=== PATIENT | male | born 1930 | race Caucasian/White ===

== ENCOUNTER 2017-03-31 09:01 | Observation (INO) | payer MEDICARE, OTHER ==
[~2017-03-31] VITALS: Ht 177.8 cm; Wt 80.3 kg
--- NOTE | 2017-03-31 09:01 | NUR ---
ARRIVAL PT ARRIVED VIA EMS, AWAKE, ALERT, ORIENTED TO SELF ONLY. PT WAS FOUND IN HIS CAR DRINKING COFFEE BY PD, PT CONFUSED, NOT SURE WHAT TIME OF DAY IT IS OR WHY HE IS IN [place]. EMS BROUGHT PT IN FOR ALTERED MENTAL STATUS. PT TEMP 94.4 ORAL, PLACED WARM BLANKETS ON PT WITH BEAR HUGGER UNDER BLANKET, GOT PT COFFEE AND BREAKFAST TRAY, SITTING UP EATING BREAKFAST.
--- NOTE | 2017-03-31 09:07 | NUR ---
DAUGHTER PT HAD A CARD IN HIS [place] WITH HIS DAUGHTERS NUMBER, CALLED NUMBER AND SPOKE WITH BRAYDEN PT DAUGHTER, SHE BECAME VERY UPSET AND TEARFUL, STATED SHE HAS BEEN TRYING TO CALL HIM BUT HAS NOT SPOKE TO HIM SINCE LAST WEDNESDAY. 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 SHE STATED SHE WOULD START MAKING ARRANGEMENTS TO GET HERE TO HIM. GAVE DAUGHTER MY NUMBER TO CALL ME BACK WHEN SHE GETS A PLAN.
--- NOTE | 2017-03-31 09:17 | NUR ---
HAYLEY CALLED HAYLEY CHEF BROILER OR FRY TO INFORM HER OF SITUATION AND GAVE HER DAUGHTERS NUMBER.
--- NOTE | 2017-03-31 09:18 | PCM.EKG ---
[facility] Test Date: 2017-03-31 Test Time: 09:16:50 Pat Name: THEODORA MARTINEZ Department: Room: 306 Gender: M Air/Ocean Export Clerk: ASIYA : 1930 Requested By: RENETTA GOLDSMITH Order Number: [id number] Reading MD: Kenneth Avery Measurements Intervals [place] Rate: 78 P: 60 IN: 150 QRS: -33 QRSD: 114 T: 78 QT: 390 QTc: 444 Interpretive Statements Sinus rhythm with premature supraventricular complexes and fusion complexes Left axis deviation Inferior infarct, age undetermined Abnormal ECG No previous ECG available for comparison Electronically Signed On 04-04-2017 14:35:44 STRAIGHTENING MACHINE FEEDER by Kenneth Avery Please click the below link to view image of tracing.
[2017-03-31 09:25] LABS: BASOPHIL # 0.1 10^3/uL (0.0-0.1); BASOPHIL % 0.9 % (0.0-0.2); EOSINOPHIL # 0.2 10^3/uL (0.0-0.2); EOSINOPHIL % 1.5 % (0.0-5.0); HEMOGLOBIN 15.1 g/dL (13.9-16.3); LYMPHOCYTES # 1.1 10^3/uL (1.0-4.8); LYMPHOCYTES % 10.9 % (24.0-44.0); MEAN CELL HGB 32.8 pg (26-34); MEAN CELL HGB CONCENTRATION 33.7 g/dL (33-37); MEAN CORP VOLUME 97.2 fL (78-100); MEAN PLATELET VOLUME 10.2 fL (7.8-11.0); MONOCYTES # 0.8 10^3/uL (0.3-0.8); MONOCYTES % 8.2 % (5.0-12.0); NEUTROPHIL # 7.8 10^3/uL (1.8-7.7); NEUTROPHILS % 78.3 % (41.0-85.0); RED CELL DISTRIBUTION WIDTH 13.4 % (11.5-14.5)
--- NOTE | 2017-03-31 09:38 | ER.PDOC ---
General Chief Complaint: Altered Mental Status Stated Complaint: ALOC Time seen by MD: 09:10 Source: patient Exam Limitations: clinical condition History of Present Illness Initial Comments pt found by police to have been in car overnight and is confused as to what he is doing there. pleasent affect, cooperative, no motor or sensory deficits, Temp upon admission 94.4 F Usually: alert but confused Decreased Ability to Stand: weak Prior symptoms/Treatment: No Similar symptoms previous, No Recenly Seen, No Treated by Doctor, No Recently Hospitalized Allergies: Coded Allergies: No Known Allergies (Unverified , 03/31/17) Vital Signs Temp 94.4F Past Medical History Medical History: cardiac problems, hypertension, other (daughter states he is developing dementia) Social History Smoking: non-smoker Alcohol Use: none Drug Use: none Review of Systems Constitutional: weakness Eyes: no symptoms reported Ears, Nose, Mouth, Throat: no symptoms reported Respiratory: no symptoms reported Cardiovascular: no symptoms reported Gastrointestinal: no symptoms reported Genitourinary: no symptoms reported Musculoskeletal: no symptoms reported Skin: no symptoms reported Psychiatric/Neurological: see HPI, cognitive dysfunction, weakness (pt is pleasant and answers appropriately; however can't remember when ate last, doesn' t remember whether he had supper last nite; unable to explain how and hwy he is here in [place], allegedly was seeking a neice; but daughter contacted in [place] states that there is no such neice) Endocrine: no symptoms reported Hematologic/Lymphatic: no symptoms reported All Other Systems: Reviewed and Negative Physical Exam General Appearance: alert HEENT: no apparent trauma, EOM's intact, no nystagmus, PERRL, ENT inspection nml, pharynx nml, airway intact, oral exam nml Neuro/Psych: other (confused and doesn't remeber why he is in [place]) Cranial Nerves: nml as tested Cerebellar: nml as tested Peripheral Exam: motor nml, sensation nml, reflexes nml Neck: supple, non-tender, no carotid bruit Respiratory: no resp distress, breath sounds nml CVS: reg rate & rhythm, heart sounds nml Abdomen: non-tender, no organomegaly, no distention Skin: color nml, no rash, warm/dry Extremities: non-tender, nml ROM, no pedal edema Results/Orders Results/Orders Laboratory Tests Test 03/31/17 09:21 03/31/17 10:37 03/31/17 11:49 White Blood Count 10.0 10^3/uL (4.5-11.0) Red Blood Count 4.61 10^6/uL (4.50-5.90) Hemoglobin 15.1 g/dL (13.9-16.3) Hematocrit 44.8 % (37.0-53.0) Mean Corpuscular Volume 97.2 fL (78-100) Mean Corpuscular Hemoglobin 32.8 pg (26-34) Mean Corpuscular Hemoglobin Concent 33.7 g/dL (33-37) Red Cell Distribution Width 13.4 % (11.5-14.5) Platelet Count 228 10^3/uL (150-400) Mean Platelet Volume 10.2 fL (7.8-11.0) Neutrophils (%) (Auto) 78.3 % (41.0-85.0) Lymphocytes (%) (Auto) 10.9 % (24.0-44.0) Monocytes (%) (Auto) 8.2 % (5.0-12.0) Neutrophils # (Auto) 7.8 10^3/uL (1.8-7.7) Lymphocytes # (Auto) 1.1 10^3/uL (1.0-4.8) Monocytes # (Auto) 0.8 10^3/uL (0.3-0.8) Absolute Immature Granulocyte (auto 0.02 10^3 u/L (0-2) Eosinophils % 1.5 % (0.0-5.0) Basophils % 0.9 % (0.0-0.2) Basophils # 0.1 10^3/uL (0.0-0.1) Eosinophil Count 0.2 10^3/uL (0.0-0.2) Prothrombin Time 11.6 SEC (9.8-11.9) Prothrombin Time INR (Non-Therap) 1.1 Activated Partial Thromboplast Time 26.7 SEC (24.67-30.72) Sodium Level 138 mmol/L (132-145) Potassium Level 5.1 mmol/L (3.6-5.2) Chloride Level 104.0 mmol/L (96-109) Carbon Dioxide Level 26.6 mmol/L (20.0-32) Anion Gap 12.5 Blood Urea Nitrogen 17 mg/dL (7-18) Creatinine 1.25 mg/dL (0.59-1.40) Estimated GFR () 66.6 (>/=60) BUN/Creatinine Ratio 13.0 Glucose Level 100 mg/dL (70-110) Calcium Level 9.5 mg/dL (8.4-10.5) Total Bilirubin 1.0 mg/dL (0.2-1.0) Aspartate Amino Transf (AST/SGOT) 17 U/L (0-35) Alanine Aminotransferase (ALT/SGPT) 15 U/L (12-78) Alkaline Phosphatase 68 U/L (50-136) Troponin I 0.45 ng/mL (0.00-0.05) 0.46 ng/mL (0.00-0.05) Total Protein 7.8 g/dL (6.4-8.2) Albumin 3.9 g/dL (3.4-5.0) Globulin 3.9 Percent Immature Gran (Cell Imm) 0.20 % (0.00-0.50) Urine Collection Type VOID Urine Color YELLOW (YELLOW) Urine Appearance CLEAR (CLEAR) Urine Bilirubin NEGATIVE MG/DL (NEGATIVE) Urine Ketones NEGATIVE (NEGATIVE) Urine Specific [place] 1.020 (1.005-1.035) Urine pH 5 (5.0-6.0) Urine Protein 15 mg/dL (NEGATIVE) Urine Urobilinogen NORMAL (NEGATIVE) Urine Nitrate NEGATIVE (NEGATAIVE) Urine Leukocyte Esterase 100/ul 1+ (NEGATIVE) Urine Blood NEGATIVE (NEGATIVE) Urine RBC NONE SEEN RBC/HPF (NONE Urine WBC 5-10 WBC/HPF (0-2) Urine Squamous Epithelial Cells FEW #/HPF (FEW) Urine Bacteria FEW (NONE SEEN) Urine Hyaline Casts 0-1 (NONE SEEN) Urine Glucose NORMAL (NEGATIVE) Progress Progress discussed with Dr Rosales, will admit for serial cardiac enzymes. await daughters arrival Departure Time of Disposition: 12:30 Disposition: 09 ADMITTED INPATIENT Impression: Primary Impression: Altered mental status, unspecified Additional Impressions: Elevated troponin Urinary tract infection Condition: Stable Problem Qualifiers Primary Impression: Altered mental status, unspecified Altered mental status type: disorientation Qualified Codes: R41.0 - Disorientation, unspecified Additional Impressions: Urinary tract infection Urinary tract infection type: site unspecified Hematuria presence: without hematuria Qualified Codes: N39.0 - Urinary tract infection, site not specified RENETTA GOLDSMITH MD Mar 31, 2017 09:38
--- NOTE | 2017-03-31 09:42 | NUR ---
CT PT TAKEN TO CT
[2017-03-31 09:47] LABS: CALCIUM 9.5 mg/dL (8.4-10.5); CARBON DIOXIDE 26.6 mmol/L (20.0-32)
--- NOTE | 2017-03-31 09:55 | NUR ---
PD PD CALLED WITH NUMBER OF A FRIEND THAT THEY FOUND OF PT, CALLED AND GAVE NAME AND NUMBER TO HAYLEY SPRAYER LEATHER
--- NOTE | 2017-03-31 10:04 | DIREP ---
PROCEDURE:CHEST 1 VIEW COMPARISON:None. INDICATIONS:altered mental status FINDINGS: LUNGS/PLEURA:Minimal left basilar atelectasis. No definite consolidation. No pleural effusions. VASCULATURE:Normal. Unremarkable pulmonary vasculature. CARDIAC:Normal. No cardiac silhouette abnormality or cardiomegaly. Left-sided single lead ICD. MEDIASTINUM:Atherosclerotic aorta with no visible aneurysm. BONES:Normal. No fracture or visible bony lesion. OTHER:Negative. CONCLUSION: 1. Minimal left basilar atelectasis. 2. Left-sided ICD. 3. No acute pulmonary infiltrates. Dictated by: Adiel Babcock MD on 03/31/2017 at 09:57 AM
--- NOTE | 2017-03-31 10:06 | NUR ---
DAUGHTER DAUGHTER CALLED ME BACK TO SEE WHEN SHE NEEDED TO DRIVE HERE, TRANSFERRED HER TO HAYLEY CO[employer] SHOVELER.
--- NOTE | 2017-03-31 10:08 | DIREP ---
PROCEDURE:CT HEAD OR BRAIN W/O CONTRAST COMPARISON:None. INDICATIONS:altered mental status TECHNIQUE:CT images were created without intravenous contrast. FINDINGS: VENTRICLES:There is mild prominence of the ventricles and cortical sulci consistent with age related involutional changes. CEREBRUM:There are low-density changes in the periventricular white matter. CEREBELLUM:Negative. BRAINSTEM:Negative. BASAL CISTERNS:Negative. HEMORRHAGE:No MASS LESION:No ACUTE INFARCT:No SKULL:Normal. SINUSES:Normal. OTHER:None CONCLUSION: 1. No acute abnormalities. 2. Mild cerebral atrophy. 3. Microvascular ischemic white matter changes. Dictated by: Dale Wilson M.D. on 03/31/2017 at 10:02 AM
[2017-03-31 10:56] LABS: BILIRUBIN,URINE NEGATIVE (NEGATIVE); UROBILINOGEN,URINE NORMAL (NEGATIVE)
[2017-03-31 11:16] LABS: APPEARANCE,URINE CLEAR (CLEAR); UA COLOR YELLOW (YELLOW)
--- NOTE | 2017-03-31 12:23 | NUR ---
DR RADHA GOLDSMITH ON PHONE WITH DR GARCIA
[2017-03-31] MEDS ORDERED: TYLENOL PO PRN ×2 (12:30→19:30)
[2017-03-31] MEDS ORDERED: SENOKOT PO PRN (12:30)
[2017-03-31] MEDS ORDERED: ZOFRAN IV PRN (12:30)
--- NOTE | 2017-03-31 13:51 | NUR ---
Pt on unit Pt arrived on unit via wheelchair from ER. Received report and assumed care of pt. Pt oriented to room. Fluids and food provided. Call light within reach. Tele monitor applied. Pt denies pain or needs.
[2017-03-31 13:59] VITALS: BP 123/62
--- NOTE | 2017-03-31 14:30 | NUR ---
DISCHARGE PLAN PATIENTS DAUGHTER SUE MCGRAW CALLED INTO CM'S OFFICE. SHE STATED SHE IS CURRENTLY DIVING INTO TOWN FROM [place]. SUE THEN STATED THAT ACCORDING TO ER NURSING, HER DAD WAS FOUND WITH AMS SLEEPING IN HIS CAR BY [employer] AND TRANSPORTED TO ER FOR EVALUATION. SHE ALSO STATED HER DAD HAS BEEN LIVING IN [facility] INDEPENDENTLY AND DRIVING. SHE HAD PLANS ON COMING AND GETTING HIM THE WEEKEND OF April DUE TO HIS CLOSE FRIENDS NOTIFYING HER OF PATIENTS INCREASING CONFUSION AND "GETTING LOST". SUE STATED THAT SHE WOULD BE @ HOSPITAL TOMORROW TO ASSIST WITH HIS DISCHARGE PLANNING AND TRANSITION OF CARE FROM HOSPITAL TO HOME WITH HER BACK TO [place]. WILL CONTINUE TO FOLLOW PATIENTS PLAN OF CARE AND FOR FURTHER DISCHARGE NEEDS.
[2017-03-31 16:20] VITALS: BP 152/73
--- NOTE | 2017-03-31 18:47 | NUR ---
report received report from offgoing shift
[2017-03-31 19:21] VITALS: BP 118/58
[2017-03-31] MEDS ORDERED: ULTRAM PO PRN (19:30)
[2017-03-31] MEDS ORDERED: BACTRIM DS PO SCH (21:00)
--- NOTE | 2017-03-31 23:30 | NUR ---
confused alarm went off when pt tried to get out of bed. He verbalized that since its en[place] he should wear red shirt. When asked if he has a red shirt, he answered back "Yes". Nurse reoriented pt that he is in the hospital. Pt said he thought he is in his house. He went back to his bed and went back to sleep.
[2017-04-01 00:12] VITALS: BP 115/51
--- NOTE | 2017-04-01 00:33 | HPH ---
ADMIT DATE: 03/31/2017 CHIEF COMPLAINT: Altered mental status, found in his vehicle overnight by the [employer] department. HISTORY OF PRESENT ILLNESS: The patient is an 86-year-old man with no known medical history. He probably has some baseline dementia. He has a history of hypertension and some cardiac problems, but it is unclear. He was found in his car overnight by the police department and the EMS was called for a welfare check. He was brought to the hospital. He seemed to be confused, but he was pleasant, cooperative. He was slightly hypothermic upon admission, but he was alert. He had some generalized weakness. His baseline is truly unknown at this point. PAST MEDICAL HISTORY: Hypertension, probably some baseline dementia, cardiac problems - unknown which ones. PAST SURGICAL HISTORY: He has had an ICD implantation. Unknown what other surgeries he might have had. ALLERGIES: HE DENIED ANY ALLERGIES. HOME MEDICATIONS: He says he does not take any routine home medications. SOCIAL HISTORY: He states he lives in [place], it is unclear about his living situation. He denied any alcohol, tobacco, or illicit drug use history. FAMILY HISTORY: No known early coronary artery disease or diabetes. REVIEW OF SYSTEMS: CARDIAC: He denied chest pain, shortness of breath, or dyspnea on exertion. PULMONARY: No cough, sputum induction, or pleuritic chest pain. GASTROINTESTINAL: No nausea, vomiting, diarrhea, or constipation. All else negative in the 10-point Review of Systems, except as in the HPI. PHYSICAL EXAMINATION: VITAL SIGNS: Vital upon arrival, his temperature was 94.4 degrees Fahrenheit, pulse 90, respiratory rate 18, blood pressure 157/77 mmHg, O2 saturation 96% on room air, height 177.8 cm, and weight 80.3 kilograms. GENERAL: He was alert, oriented x 2 at the time of exam, in no acute distress, a pleasant gentleman. HEENT: Pupils were equal, round, and reactive to light. Sclerae were anicteric. Oropharynx was clear. Mucous membranes were moist. NECK: The neck was supple, no lymphadenopathy. CARDIOVASCULAR: At the time of exam was regular rate and rhythm. PULMONARY: The lungs were clear bilaterally, no wheezing. ABDOMEN: The abdomen was soft. Bowel sounds were present. Nontender to palpation. EXTREMITIES: No cyanosis, clubbing, or significant edema. NEUROLOGIC: Grossly nonfocal. INITIAL LABORATORY DATA: CBC: White count 10.0, hemoglobin 15.1, and platelets 228. DIFFERENTIAL: 78% neutrophils, 11% lymphocytes, and 8% monocytes. BMP: Sodium 138, potassium 5.1, chloride 104, CO2 26, BUN 17, creatinine 1.25, glucose 100, calcium 9.5, total bilirubin 1.0. AST 17, ALT 15, and alkaline phosphatase 68. Troponin I initially was 0.45, repeat was 0.46. Total protein 7.8 and albumin 3.9. PT 11.6 and PTT 26.7. Urinalysis: pH 5.0, specific gravity 1.020, protein 15 mg/dL, negative nitrite, leukocyte esterase 100 microliters, no RBCs, 5 to 10 WBCs, few squamous epithelial cells, and few bacteria. IMAGING STUDIES: CT of the head performed revealed some prominent ventricles and aging-related involutional changes periventricular white matter changes, negative acute process. Chest x-ray performed revealed minimal left base atelectasis. There was a left-sided ICD in place. ASSESSMENT AND PLAN: The patient is an 86-year-old man here with likely dementia with some confusion with unknown etiology, with hypertension, coronary artery disease. 1. From a cardiovascular standpoint, it is unclear which medications he is on. He has an ICD in place. He states he takes no routine home medications. His blood pressure has been variable, it has been as low as 118/65 mmHg; there are some higher readings. We will follow clinically for now and try to obtain more history from his family once they are available. We will follow serial enzymes. His cardiac enzymes did increase, we will get a 2D echocardiogram to assess. 2. Appropriate p.r.n. pain and nausea medications. 3. We will hold off on the antibiotics at this point. His UA is not consistent with a significant infection and there are no other signs of an infection. White count is normal. No evidence of a febrile response. We will follow clinically. 4. DVT prophylaxis will be with Lovenox. This plan was discussed with the patient and he does seem to understand. Time spent with patient on March 31, 2017: 45 minutes Vlad Rosales MD DR: SATISH/izzy JOB# [id number]
--- NOTE | 2017-04-01 01:35 | NUR ---
alarm off alarm went off again when pt tried to reach for his dentures that fell off the bed. Pt. was repositioned and placed comfortably on bed.
[2017-04-01 03:37] VITALS: BP 118/55
[2017-04-01 05:05] LABS: BASOPHIL # 0.1 10^3/uL (0.0-0.1); BASOPHIL % 1.6 % (0.0-0.2); EOSINOPHIL # 0.5 10^3/uL (0.0-0.2); EOSINOPHIL % 7.3 % (0.0-5.0); HEMOGLOBIN 13.7 g/dL (13.9-16.3); LYMPHOCYTES # 1.5 10^3/uL (1.0-4.8); LYMPHOCYTES % 22.2 % (24.0-44.0); MEAN CELL HGB 33.3 pg (26-34); MEAN CELL HGB CONCENTRATION 33.7 g/dL (33-37); MEAN CORP VOLUME 98.8 fL (78-100); MEAN PLATELET VOLUME 10.4 fL (7.8-11.0); MONOCYTES # 0.8 10^3/uL (0.3-0.8); MONOCYTES % 11.1 % (5.0-12.0); NEUTROPHIL # 3.9 10^3/uL (1.8-7.7); NEUTROPHILS % 57.5 % (41.0-85.0); RED CELL DISTRIBUTION WIDTH 13.6 % (11.5-14.5); WHITE BLOOD CELL 6.8 10^3/uL (4.5-11.0)
[2017-04-01 05:36] LABS: CALCIUM 8.7 mg/dL (8.4-10.5); CARBON DIOXIDE 26.8 mmol/L (20.0-32)
--- NOTE | 2017-04-01 06:39 | NUR ---
report report given to o/c shift
[2017-04-01 08:38] VITALS: BP 122/67
[2017-04-01] MEDS ORDERED: LOVENOX SQ SCH (09:00)
[2017-04-01] MEDS ORDERED: PROTONIX PO SCH (09:00)
--- NOTE | 2017-04-01 10:30 | NUR ---
BATH RT AT BEDSIDE TO PERFORM ECHO, STATED THE PATIENT WAS REQUESTING A BATH ISAAC MATHIAS CNA NOTIFIED ISAAC AND STUDENTS AT BEDSIDE TO PROVIDE BATH TO PATIENT.
[2017-04-01 11:28] VITALS: BP 137/49
--- NOTE | 2017-04-01 14:00 | PRM.DC ---
Discharge Summary Date of Discharge: Apr 01, 2017 History Present Illness: (1) Systolic CHF, chronic SEVERITY: MODERATE PERSISTENT Status: Chronic ICD Code: I50.22 - Chronic systolic (congestive) heart failure SNOMED: 07763267, 306005335 Assessment & Plan: Follow up with PCP for further management Family plans to take him to a Biofuels Technology Development Manager and have refill his chronic cardiac medications (2) Dementia SEVERITY: MODERATE PERSISTENT Status: Chronic ICD Code: F03.90 - Unspecified dementia without behavioral disturbance SNOMED: 16691989 Assessment & Plan: At baseline, follow clinically (3) Hypertension SEVERITY: MILD PERSISTENT Status: Chronic ICD Code: I10 - Essential (primary) hypertension SNOMED: 04871937 Assessment & Plan: Resume home medications General: Alert, Oriented X3, Cooperative, No acute distress HEENT: PERRLA, EOMI Neck: Supple, No JVD Lungs: Clear to auscultation, Normal air movement Heart: Regular rate, Normal S1, Normal S2 Abdomen: Normal bowel sounds, Soft, No tenderness Extremities: No clubbing, No cyanosis, Other (trace edema) Skin: No rashes, No breakdown Neuro: Normal speech, Strength at 5/5 X4 ext, Cranial nerves 3-12 NL Psych/Mental Status: Mental status NL, Mood NL Results(Labs/Rad) Laboratory Tests Test 03/31/17 09:21 03/31/17 10:37 03/31/17 11:49 03/31/17 17:38 White Blood Count 10.0 10^3/uL Red Blood Count 4.61 10^6/uL Hemoglobin 15.1 g/dL Hematocrit 44.8 % Mean Corpuscular Volume 97.2 fL Mean Corpuscular Hemoglobin 32.8 pg Mean Corpuscular Hemoglobin Concent 33.7 g/dL Red Cell Distribution Width 13.4 % Platelet Count 228 10^3/uL Mean Platelet Volume 10.2 fL Neutrophils (%) (Auto) 78.3 % Lymphocytes (%) (Auto) 10.9 % Monocytes (%) (Auto) 8.2 % Neutrophils # (Auto) 7.8 10^3/uL Lymphocytes # (Auto) 1.1 10^3/uL Monocytes # (Auto) 0.8 10^3/uL Absolute Immature Granulocyte (auto 0.02 10^3 u/L Eosinophils % 1.5 % Basophils % 0.9 % Basophils # 0.1 10^3/uL Eosinophil Count 0.2 10^3/uL Prothrombin Time 11.6 SEC Prothrombin Time INR (Non-Therap) 1.1 Activated Partial Thromboplast Time 26.7 SEC Sodium Level 138 mmol/L Potassium Level 5.1 mmol/L Chloride Level 104.0 mmol/L Carbon Dioxide Level 26.6 mmol/L Anion Gap 12.5 Blood Urea Nitrogen 17 mg/dL Creatinine 1.25 mg/dL Estimated GFR () 66.6 BUN/Creatinine Ratio 13.0 Glucose Level 100 mg/dL Calcium Level 9.5 mg/dL Total Bilirubin 1.0 mg/dL Aspartate Amino Transf (AST/SGOT) 17 U/L Alanine Aminotransferase (ALT/SGPT) 15 U/L Alkaline Phosphatase 68 U/L Troponin I 0.45 ng/mL 0.46 ng/mL 0.60 ng/mL Total Protein 7.8 g/dL Albumin 3.9 g/dL Globulin 3.9 Percent Immature Gran (Cell Imm) 0.20 % Urine Collection Type VOID Urine Color YELLOW Urine Appearance CLEAR Urine Bilirubin NEGATIVE MG/DL Urine Ketones NEGATIVE Urine Specific [place] 1.020 Urine pH 5 Urine Protein 15 mg/dL Urine Urobilinogen NORMAL Urine Nitrate NEGATIVE Urine Leukocyte Esterase 100/ul 1+ Urine Blood NEGATIVE Urine RBC NONE SEEN RBC/HPF Urine WBC 5-10 WBC/HPF Urine Squamous Epithelial Cells FEW #/HPF Urine Bacteria FEW Urine Hyaline Casts 0-1 Urine Glucose NORMAL Creatine Kinase MB 6.6 ng/mL 8.0 ng/mL Total Creatine Kinase 316 U/L Test 03/31/17 23:25 04/01/17 04:30 Total Creatine Kinase 333 U/L Troponin I 0.49 ng/mL 0.45 ng/mL White Blood Count 6.8 10^3/uL Red Blood Count 4.11 10^6/uL Hemoglobin 13.7 g/dL Hematocrit 40.6 % Mean Corpuscular Volume 98.8 fL Mean Corpuscular Hemoglobin 33.3 pg Mean Corpuscular Hemoglobin Concent 33.7 g/dL Red Cell Distribution Width 13.6 % Platelet Count 195 10^3/uL Mean Platelet Volume 10.4 fL Neutrophils (%) (Auto) 57.5 % Lymphocytes (%) (Auto) 22.2 % Monocytes (%) (Auto) 11.1 % Neutrophils # (Auto) 3.9 10^3/uL Lymphocytes # (Auto) 1.5 10^3/uL Monocytes # (Auto) 0.8 10^3/uL Absolute Immature Granulocyte (auto 0.02 10^3 u/L Eosinophils % 7.3 % Basophils % 1.6 % Basophils # 0.1 10^3/uL Eosinophil Count 0.5 10^3/uL Sodium Level 142 mmol/L Potassium Level 4.1 mmol/L Chloride Level 106.0 mmol/L Carbon Dioxide Level 26.8 mmol/L Anion Gap 13.3 Blood Urea Nitrogen 18 mg/dL Creatinine 1.26 mg/dL Estimated GFR () 65.7 BUN/Creatinine Ratio 14.0 Glucose Level 93 mg/dL Calcium Level 8.7 mg/dL Total Bilirubin 1.0 mg/dL Aspartate Amino Transf (AST/SGOT) 17 U/L Alanine Aminotransferase (ALT/SGPT) 13 U/L Alkaline Phosphatase 56 U/L Total Protein 6.3 g/dL Albumin 3.1 g/dL Globulin 3.2 Percent Immature Gran (Cell Imm) 0.30 % Sepsis Evaluation @ Discharge Course Blood Pressure Systolic: 137 Blood Pressure Diastolic: 49 Blood Pressure Mean: 78 Notes Samantha presented with confusion with unknown baseline. It appears clinically he has chronic dementia. He was not taking his routine medications. His daughter has refill his medications and plans to pick him up and take him home with her to follow up with a PCP and Biofuels Technology Development Manager. He was ambulating well and not complaining of chest pain or difficulty breathing. Plan Discharge Date: Apr 01, 2017 Dicharge DX: 1. Dementia with altered mental status, 2. CHF chronic systolic dysfunction Discharge Disposition: Stable Plan Resume home medications (daughter has refilled his medications) Diet and activity as tolerated Follow up with PCP and Cardiology next available appointment Discharge plans discussed with patient and daughter informed. Time spent 25 minutes Problem Qualifiers (1) Dementia: Dementia type: vascular dementia (2) Hypertension: Hypertension type: essential hypertension Qualified Codes: I10 - Essential ( primary) hypertension FABIOLA GARCIA MD Apr 01, 2017 14:00
[2017-04-01] MEDS ORDERED: APIX5TAB PO (14:02)
--- NOTE | 2017-04-01 14:38 | NUR ---
Pt off unit Pt transferred off unit. No s/s of distress noted.
--- NOTE | 2017-04-07 12:25 | ECHO ---
DATE OF SERVICE: 04/01/2017 INDICATIONS: An 86-year-old gentleman, noted to have elevated troponin, and elected by Dr. Rosales, the hospitalist, for an evaluation for an echocardiographic study. FINDINGS: 1. Study quality was fair. 2. Underlying rhythm was sinus rhythm with bundle branch block, possibility of a paced rhythm. 3. Overall EF was 5% and global hypokinesia with dilated LV cavity. No LVH. Hypokinesia was global. 4. RV size and EF were normal. Pacemaker wire artifact in the right heart chamber noted. 5. Atrial sizes were normal. 6. Moderate mitral regurgitation with a central jet and evidence of early mitral stenosis with a mitral valve gradient of 5 mmHg. 7. Obvious grade 1 diastolic dysfunction with a clear E to A reversal on Doppler signal across mitral inflow. 8. Aortic valve was calcified, velocity across valve was 1.2 meters per second and the aortic valve area was 1.9 cm2. Aortic sclerosis noted with moderate aortic regurgitation. 9. No pericardial effusion. 10. PA pressure was around 35 to 40 mmHg. 11. Inferior vena cava was suboptimally visualized. IMPRESSION: 1. Moderate to severe LV dysfunction, EF was 35%, with dilated LV cavity and global hypokinesia. 2. RV size and EF were normal. 3. Wire artifact in the right heart chamber. 4. Moderate mitral regurgitation with calcification and early mitral stenosis with a gradient of 5 mmHg. 5. Clear grade 1 diastolic dysfunction. 6. Moderate aortic regurgitation without significant stenosis. Aortic sclerosis noted. 7. PA pressure was around 45 mmHg. 8. No pericardial effusion noted. 9. Rhythm was sinus rhythm with the possibility of a paced rhythm with a bundle branch block. Ranjit Oneill MD DR: AIXA/izzy JOB# [id number]
== END 2017-04-01 16:28 | disposition home or self-care (01) ==
LOC: ER 09:01 → MS 12:26
PROVIDERS: ADMIT Internal Medicine; ATTEND Internal Medicine
DX: R41.82 Altered mental status, unspecified (principal); F03.90 Unspecified dementia, unspecified severity, without behavioral disturbance, psychotic disturbance, mood disturbance, and anxiety; I11.0 Hypertensive heart disease with heart failure; I50.22 Chronic systolic (congestive) heart failure; N39.0 Urinary tract infection, site not specified; I25.10 Atherosclerotic heart disease of native coronary artery without angina pectoris; R79.89 Other specified abnormal findings of blood chemistry; Z95.810 Presence of automatic (implantable) cardiac defibrillator
CPT/HCPCS: 36415 ×2; 70450; 71010; 80053 ×2; 81000; 82550 ×2; 82553 ×2; 84484 ×5; 85025 ×2; 85610; 93005; 93307; 96372; 99285; G0378 ×28; J1650